=== PATIENT | male | born 1955 | race Caucasian/White ===

== ENCOUNTER 2018-11-11 05:22 | Emergency (ER) | payer SELFPAY ==
[~2018-11-11] VITALS: Ht 182.9 cm; Wt 87.5 kg
[2018-11-11] MEDS ORDERED: ALBUTEROL/IPRATROPIUM 2.5MG/0.5MG, 3 ML NPPB ONE (06:00)
[2018-11-11] MEDS ORDERED: ACETAMINOPHEN 500 MG TABLET PO ONE (06:00)
[2018-11-11] MEDS ORDERED: ALBUTEROL/IPRATROPIUM 2.5MG/0.5MG, 3 ML ONE (06:07)
--- NOTE | 2018-11-11 06:07 | NUR ---
PT BACK FROM XRAY
[2018-11-11 06:22] LABS: BASOPHILS # (AUTO) 0.03 x10^3/uL (0-0.1); BASOPHILS % (AUTO) 0 % (0-1); EOSINOPHILS # (AUTO) 0.28 x10^3/uL (0-0.4); EOSINOPHILS % (AUTO) 3 % (1-7); LYMPHOCYTES # (AUTO) 0.95 x10^3/uL (1-3.4); LYMPHOCYTES % (AUTO) 11 % (22-44); MD NO; MEAN CORPUSCULAR HEMOGLOBIN 31.7 pg (27.5-34.5); MEAN CORPUSCULAR HGB CONC 34.4 g/dL (33.2-36.2); MEAN CORPUSCULAR VOLUME 91.9 fL (81-97); MEAN PLATELET VOLUME 7.3 fL (7.4-10.4); MONOCYTES # (AUTO) 0.61 x10^3/uL (0.2-0.8); MONOCYTES % (AUTO) 7 % (2-9); NEUTROPHILS # (AUTO) 7.12 x10^3/uL (1.8-6.8); NEUTROPHILS % (AUTO) 79 % (42-75); PLATELET COUNT 314 x10^3/uL (130-400); RED BLOOD COUNT 4.39 x10^6/uL (4.38-5.82); RED CELL DISTRIBUTION WIDTH 13.9 % (9.4-14.8)
[2018-11-11 06:29] LABS: RAPID INFLUENZA A Negative (Negative); RAPID INFLUENZA B Negative (Negative)
[2018-11-11 06:33] LABS: ALBUMIN 3.5 g/dL (3.4-5.0); ANION GAP 6 mmol/L (5-15); CALCIUM 9.9 mg/dL (8.5-10.1); CHLORIDE 108 mmol/L (98-107)
--- NOTE | 2018-11-11 06:48 | NUR ---
PT RESTING ON GURNEY QUIETLY WITH HIS EYES CLOSED. AROUSES TO VERBAL STIMULI. DENIES ANY NEEDS AT THIS TIME. VITALS STABLE. AWAITING CXR READ AT THIS TIME, WILL CONTINUE TO MONITOR.
[2018-11-11 06:50] LABS: CREATININE 1.14 mg/dL (0.7-1.3); TROPONIN I < 0.015 ng/mL (0.000-0.045)
--- NOTE | 2018-11-11 06:56 | NUR ---
BEDSIDE REPORT TO ALEXANDER MONTEIRO
--- NOTE | 2018-11-11 06:59 | NUR ---
RECEIVED REPORT FROM HUGH MUNOZ.
[2018-11-11] MEDS ORDERED: ACETAMINOPHEN 500 MG TABLET ONE (07:02)
[2018-11-11 07:06] VITALS: BP 142/78
== END 2018-11-11 07:08 | disposition home or self-care (01) ==
LOC: ED 07:05
DX: J00 Acute nasopharyngitis [common cold] (principal); B34.9 Viral infection, unspecified
CPT/HCPCS: 36415; 71046; 80048; 82040; 84484; 85025; 87400; 93005; 94640; 99284; J7620

== ENCOUNTER 2019-06-04 13:00 | Emergency (ER) | payer OTHER ==
[~2019-06-04] VITALS: Ht 182.9 cm; Wt 83.2 kg
--- NOTE | 2019-06-04 13:39 | NUR ---
LAB AT BEDSIDE FOR COLLECTION.
[2019-06-04 13:50] VITALS: BP 124/82
--- NOTE | 2019-06-04 13:50 | NUR ---
THIS IS A 63YO MALE THAT COMES IN FOR PAINFUL URINIATION AND DISCHARGE FROM HIS PENIS. PT DENIES SEXUAL CONTACT OR RECENT TRAUMA. PT EDUCATED ON NEED FOR URINE SAMPLE. PT STATES UNABLE TO PEE YET BUT HE WILL IN A FEW MINS. PT CONNECTED TO MONITORING VSS. NADN. CALL LIGHT WITHIN REACH.
[2019-06-04 13:54] LABS: BASOPHILS # (AUTO) 0.02 x10^3/uL (0-0.1); BASOPHILS % (AUTO) 0 % (0-1); EOSINOPHILS # (AUTO) 0.14 x10^3/uL (0-0.4); EOSINOPHILS % (AUTO) 2 % (1-7); LYMPHOCYTES # (AUTO) 0.57 x10^3/uL (1-3.4); LYMPHOCYTES % (AUTO) 8 % (22-44); MD NO; MEAN CORPUSCULAR HEMOGLOBIN 31.6 pg (27.5-34.5); MEAN CORPUSCULAR HGB CONC 33.9 g/dL (33.2-36.2); MEAN CORPUSCULAR VOLUME 93.1 fL (81-97); MEAN PLATELET VOLUME 7.1 fL (7.4-10.4); MONOCYTES % (AUTO) 8 % (2-9); NEUTROPHILS # (AUTO) 5.85 x10^3/uL (1.8-6.8); NEUTROPHILS % (AUTO) 82 % (42-75); PLATELET COUNT 244 x10^3/uL (130-400); RED BLOOD COUNT 4.63 x10^6/uL (4.38-5.82); RED CELL DISTRIBUTION WIDTH 14.1 % (9.4-14.8)
[2019-06-04 14:00] LABS: ALBUMIN 3.4 g/dL (3.4-5.0); ANION GAP 6 mmol/L (5-15); CHLORIDE 106 mmol/L (98-107); CREATININE 1.06 mg/dL (0.7-1.3)
--- NOTE | 2019-06-04 14:01 | NUR ---
PT UP TO RESTROOM FOR URINE SAMPLE. PT EDUCATED ON CLEAN CATCH.
--- NOTE | 2019-06-04 14:06 | NUR ---
URINE SENT TO LAB
[2019-06-04 14:19] LABS: CULTURE INDICATED? YES; MICROSCOPIC INDICATED
--- NOTE | 2019-06-04 15:55 | NUR ---
ALL RESULTS BACK AT THIS TIME, CHART UP FOR RECHECK. NEW ORDERS RECEIVED FOR ABX
[2019-06-04] MEDS ORDERED: CEFTRIAXONE 1,000 MG IM ONE (16:00)
[2019-06-04] MEDS ORDERED: CEFTRIAXONE 1,000 MG ONE (16:03)
[2019-06-04] MEDS ORDERED: LIDOCAINE-MPF 1%, 2ML ONE (16:03)
--- NOTE | 2019-06-04 16:08 | NUR ---
UPON ATTEMPTING TO MEDICATE PT WITH ABX AND GIVE DC PAPERS, PT NO LONGER IN ROOM. UNIT CHECKED BUT APPEARS PT ELOPED PRIOR TO RECEIVING TEST RESULTS, ABX OR DC PAPERS.
== END 2019-06-04 16:12 | disposition left against medical advice (07) ==
LOC: ED 16:06
DX: N34.1 Nonspecific urethritis (principal); N30.01 Acute cystitis with hematuria
CPT/HCPCS: 36415; 80048; 81001; 82040; 85025; 87077; 87086; 87491; 87591; 99283

== ENCOUNTER 2019-06-08 17:05 | Emergency (ER) | payer SELFPAY ==
[~2019-06-08] VITALS: Ht 182.9 cm; Wt 83.0 kg
[2019-06-08 17:09] VITALS: BP 128/74
--- NOTE | 2019-06-08 17:39 | NUR ---
MED STUDENT AT BEDSIDE FOR ASSESSMENT
[2019-06-08] MEDS ORDERED: LIDOCAINE-MPF 1%, 5ML ONE (17:45)
[2019-06-08] MEDS ORDERED: CEFTRIAXONE 250 MG ONE (17:45)
[2019-06-08] MEDS ORDERED: CEFTRIAXONE 250 MG IM ONE (18:00)
== END 2019-06-08 18:31 | disposition home or self-care (01) ==
LOC: ED 18:20
DX: A54.01 Gonococcal cystitis and urethritis, unspecified (principal)
CPT/HCPCS: 96372; 99283; J0696

== ENCOUNTER 2019-08-31 22:00 | Inpatient (IN) | payer MEDICARE ==
[~2019-08-31] VITALS: Ht 182.9 cm; Wt 83.8 kg
[2019-08-31] MEDS ORDERED: HYDROmorphone 1 MG/ML, 1ML INJ IM STA (22:30)
[2019-08-31 22:58] LABS: BASOPHILS # (AUTO) 0.02 x10^3/uL (0-0.1); BASOPHILS % (AUTO) 0 % (0-1); EOSINOPHILS # (AUTO) 0.21 x10^3/uL (0-0.4); EOSINOPHILS % (AUTO) 2 % (1-7); HCT (SEDRATE) 30.3 % (39.2-51.8); LYMPHOCYTES # (AUTO) 0.87 x10^3/uL (1-3.4); LYMPHOCYTES % (AUTO) 10 % (22-44); MD NO; MEAN CORPUSCULAR HEMOGLOBIN 32.6 pg (27.5-34.5); MEAN CORPUSCULAR HGB CONC 34.8 g/dL (33.2-36.2); MEAN CORPUSCULAR VOLUME 93.7 fL (81-97); MEAN PLATELET VOLUME 7.6 fL (7.4-10.4); MONOCYTES # (AUTO) 0.77 x10^3/uL (0.2-0.8); MONOCYTES % (AUTO) 9 % (2-9); NEUTROPHILS # (AUTO) 6.86 x10^3/uL (1.8-6.8); NEUTROPHILS % (AUTO) 79 % (42-75); PLATELET COUNT 203 x10^3/uL (130-400); RED BLOOD COUNT 3.24 x10^6/uL (4.38-5.82); RED CELL DISTRIBUTION WIDTH 13.7 % (9.4-14.8)
[2019-08-31] MEDS ORDERED: SODIUM CHLORIDE FLUSH 10ML SYR IVF ONE (23:00)
[2019-08-31] MEDS ORDERED: ONDANSETRON 2MG/ML, 2ML IVPush ONE (23:00)
[2019-08-31] MEDS ORDERED: HYDROmorphone 1 MG/ML, 1ML INJ IVPush PRN (23:00)
[2019-08-31 23:10] LABS: ALANINE AMINOTRANSFERASE 41 U/L (12-78); ALBUMIN 3.1 g/dL (3.4-5.0); ANION GAP 6 mmol/L (5-15); CHLORIDE 106 mmol/L (98-107)
[2019-08-31 23:18] LABS: ALKALINE PHOSPHATASE 60 U/L (45-117); BILIRUBIN,TOTAL 0.5 mg/dL (0.2-1.0); TOTAL PROTEIN 6.8 g/dL (6.4-8.2)
[2019-08-31] MEDS ORDERED: HYDROmorphone 1 MG/ML, 1ML INJ ONE (23:27)
[2019-08-31] MEDS ORDERED: ONDANSETRON 2MG/ML, 2ML ONE (23:36)
[2019-09-01] MEDS ORDERED: AMPICILLIN/SULBACTAM 1,500 MG in SODIUM CHLORIDE 0.9% 50 ML IV SCH
[2019-09-01] MEDS ORDERED: VANCOMYCIN 1,700 MG in SODIUM CHLORIDE 0.9% 250 ML IV ONE (00:30)
--- NOTE | 2019-09-01 00:57 | NUR ---
ABX IV GIVEN PER MD ORDER VSS UPDATED PT IS AWARE PT WILL BE ADMITTED
[2019-09-01 01:30] VITALS: BP 133/77
[2019-09-01] MEDS ORDERED: SODIUM CHLORIDE 0.9% 1,000 ML IV SCH (03:54)
[2019-09-01] MEDS ORDERED: PHARMACOKINETIC MONITORING MC PRN (05:00)
[2019-09-01] MEDS ORDERED: MORPHINE SULFATE 4 MG/ML, 1ML IVPush PRN (05:00)
[2019-09-01] MEDS ORDERED: ONDANSETRON 2MG/ML, 2ML IVPush PRN (05:00)
[2019-09-01] MEDS ORDERED: PHARMACOKINETIC CONSULTATION MC ONE (05:00)
[2019-09-01] MEDS ORDERED: VANCOMYCIN PER PHARMACY MC PRN ×2 (05:00)
[2019-09-01] MEDS: AMPICILLIN/SULBACTAM 1,500 MG in SODIUM CHLORIDE 0.9% 50 ML IV SCH ×2 (06:01→12:30)
[2019-09-01 07:59] VITALS: BP 106/63
[2019-09-01] MEDS ORDERED: MELO15TA24 PO (12:25)
[2019-09-01 12:58] VITALS: BP 136/75
[2019-09-01] MEDS ORDERED: VANCOMYCIN 1,600 MG in SODIUM CHLORIDE 0.9% 250 ML IV SCH (19:00)
== END 2019-09-01 13:55 | disposition home or self-care (01) | DRG 605 ==
LOC: ED 22:51 → EDIP 09-01 00:07 → 4NE 09-01 01:30 → DCLOUNGE 09-01 13:40
PROVIDERS: ADMIT Family Medicine; ATTEND Family Medicine
DX: S70.12XA Contusion of left thigh, initial encounter (principal); F17.200 Nicotine dependence, unspecified, uncomplicated; K40.90 Unilateral inguinal hernia, without obstruction or gangrene, not specified as recurrent; S70.02XA Contusion of left hip, initial encounter; W18.39XA Other fall on same level, initial encounter; Y93.89 Activity, other specified; Y92.89 Other specified places as the place of occurrence of the external cause; Y99.8 Other external cause status
CPT/HCPCS: 36415; 72192; 80053; 85025; 85651; 86140; 87040; 96365; 96368; 96375; J1170; J2405; J3370; J0295; J7030; J7050

== ENCOUNTER 2019-09-02 21:39 | Emergency (ER) | payer MEDICARE ==
[~2019-09-02] VITALS: Ht 182.9 cm; Wt 89.4 kg
[~2019-09-02 21:39] MED LIST: MELO15TA24 PO
[2019-09-02 23:13] LABS: HCT (SEDRATE) 31.5 % (39.2-51.8)
[2019-09-02 23:24] LABS: ALANINE AMINOTRANSFERASE 39 U/L (12-78); ALBUMIN 3.3 g/dL (3.4-5.0); ANION GAP 4 mmol/L (5-15); BASOPHILS # (AUTO) 0.02 x10^3/uL (0-0.1); BASOPHILS % (AUTO) 0 % (0-1); CALCIUM 10.3 mg/dL (8.5-10.1); CHLORIDE 107 mmol/L (98-107); CREATININE 1.23 mg/dL (0.7-1.3); EOSINOPHILS # (AUTO) 0.27 x10^3/uL (0-0.4); EOSINOPHILS % (AUTO) 4 % (1-7); LYMPHOCYTES # (AUTO) 0.92 x10^3/uL (1-3.4); LYMPHOCYTES % (AUTO) 13 % (22-44); MD NO; MEAN CORPUSCULAR HEMOGLOBIN 32.3 pg (27.5-34.5); MEAN CORPUSCULAR HGB CONC 33.9 g/dL (33.2-36.2); MEAN CORPUSCULAR VOLUME 95.2 fL (81-97); MEAN PLATELET VOLUME 7.4 fL (7.4-10.4); MONOCYTES # (AUTO) 0.61 x10^3/uL (0.2-0.8); MONOCYTES % (AUTO) 8 % (2-9); NEUTROPHILS # (AUTO) 5.51 x10^3/uL (1.8-6.8); NEUTROPHILS % (AUTO) 75 % (42-75); PLATELET COUNT 260 x10^3/uL (130-400); RED BLOOD COUNT 3.24 x10^6/uL (4.38-5.82); RED CELL DISTRIBUTION WIDTH 13.8 % (9.4-14.8)
[2019-09-02 23:30] LABS: ALKALINE PHOSPHATASE 74 U/L (45-117); BILIRUBIN,TOTAL 0.7 mg/dL (0.2-1.0); TOTAL PROTEIN 7.5 g/dL (6.4-8.2)
[2019-09-02] MEDS ORDERED: SODIUM CHLORIDE 0.9% 1,000ML IVBOLUS ONE (23:30)
[2019-09-02] MEDS ORDERED: HYDROmorphone 2 MG/ML, 1ML IVPush PRN (23:30)
[2019-09-02] MEDS ORDERED: SODIUM CHLORIDE FLUSH 10ML SYR IVF ONE (23:30)
[2019-09-02] MEDS ORDERED: ONDANSETRON 2MG/ML, 2ML IVPush ONE (23:30)
[2019-09-02] MEDS ORDERED: ONDANSETRON 2MG/ML, 2ML ONE (23:37)
[2019-09-02] MEDS ORDERED: HYDROmorphone 1 MG/ML, 1ML INJ ONE (23:37)
--- NOTE | 2019-09-02 23:56 | NUR ---
PT MEDICATED PER OCT. PT RESTING COMFORTABLY. MONITOR IN PLACE. BEAR HUGGER FOR COMFORT.
[2019-09-03] MEDS ORDERED: OMNIPAQUE 350 MG/ML, 150 ML BOTTLE ONE (01:12)
--- NOTE | 2019-09-03 01:42 | NUR ---
PT RESTING COMFORTABLY. MONITOR IN PLACE. PT UPDATED ON POC. NO OTHER NEEDS AT THIS TIME.
[2019-09-03 02:49] VITALS: BP 136/66
== END 2019-09-03 02:54 | disposition home or self-care (01) ==
LOC: ED 09-03 02:06
DX: S70.02XA Contusion of left hip, initial encounter (principal); W00.0XXA Fall on same level due to ice and snow, initial encounter; Y93.29 Activity, other involving ice and snow; Y92.89 Other specified places as the place of occurrence of the external cause; Y99.8 Other external cause status
CPT/HCPCS: 36415; 73706; 80053; 83605; 84145; 85025; 85651; 86140; 87040; 96361; 96374; 96375; 99284; J1170; J2405; J7030; Q9967

== ENCOUNTER 2019-12-20 10:06 | Emergency (ER) | payer MEDICARE ==
[~2019-12-20] VITALS: Ht 182.9 cm; Wt 90.3 kg
[2019-12-20] MEDS ORDERED: OXYcodone/APAP 5/325MG TABLET PO ONE (10:30)
[2019-12-20] MEDS ORDERED: DIAZEPAM 5 MG TABLET PO ONE (10:30)
[2019-12-20] MEDS ORDERED: DIAZEPAM 5 MG TABLET ONE (10:47)
[2019-12-20] MEDS ORDERED: OXYcodone/APAP 5/325MG TABLET ONE (10:47)
--- NOTE | 2019-12-20 10:54 | NUR ---
woke up a few days ago with stifness in left neck. now experiencing proggressive pain down to the left shoulder.
--- NOTE | 2019-12-20 11:51 | NUR ---
REPORTST ELIZABETH N 10/21 MUCH BETTER AFTER MEDS
--- NOTE | 2019-12-20 12:33 | NUR ---
TASK RN: CARE FOR DC ONLY PROVIDED. PT LAYING ON GURNEY. RUBS NECK AT TIMES. "PAIN IMPROVED" NO IV TO DC. REVIEWED DC INSTRUCTIONS WITH PT, UNDERSTANDING VERBALIZED. PT LEFT AMB, GAIT STEADY.
[2019-12-20 12:34] VITALS: BP 116/66
== END 2019-12-20 12:36 | disposition home or self-care (01) ==
LOC: ED 11:13
DX: M54.12 Radiculopathy, cervical region (principal); M89.38 Hypertrophy of bone, other site; F17.210 Nicotine dependence, cigarettes, uncomplicated
CPT/HCPCS: 72125; 99284

== ENCOUNTER 2020-04-11 13:38 | Emergency (ER) | payer MEDICARE ==
--- NOTE | 2020-04-11 13:50 | NUR ---
NAABEL RN: CALLED PT NO ANSWER
--- NOTE | 2020-04-11 14:00 | NUR ---
OCCUPATIONAL MEDICINE PHYSICIAN: CALLED PT NO ANSWER
--- NOTE | 2020-04-11 14:09 | NUR ---
CEREAL POPPER: CALLED PT NO ANSWER
== END 2020-04-11 14:10 ==
LOC: ED 14:04
DX: S16.1XXA Strain of muscle, fascia and tendon at neck level, initial encounter (principal); S29.012A Strain of muscle and tendon of back wall of thorax, initial encounter; J15.9 Unspecified bacterial pneumonia; K04.7 Periapical abscess without sinus; R05 Cough; R50.9 Fever, unspecified; Z87.891 Personal history of nicotine dependence; R51 Headache; X58.XXXA Exposure to other specified factors, initial encounter; Y93.89 Activity, other specified; Y92.89 Other specified places as the place of occurrence of the external cause; Y99.8 Other external cause status
CPT/HCPCS: 99283

== ENCOUNTER 2020-04-11 20:56 | Emergency (ER) | payer MEDICARE ==
[~2020-04-11] VITALS: Ht 182.9 cm; Wt 84.9 kg
--- NOTE | 2020-04-11 22:11 | NUR ---
PARAMEDIC: NO ANSWER X1 FROM LOBBY AT THIS TIME TO ROOM PT
--- NOTE | 2020-04-11 22:34 | NUR ---
FARMWORKER FRUIT: PT [facility]ULAT[facility]
--- NOTE | 2020-04-11 22:56 | NUR ---
PT RECLINED IN BED, RESPIRATIONS EVEN AND UNLABORED ON RA. 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 OUT OF MEDICATIONS PT HAS HISTORICALLY USED FOR THIS SYNDROME.
[2020-04-12] MEDS ORDERED: ACETAMINOPHEN 325 MG TABLET PO ONE
[2020-04-12] MEDS ORDERED: SODIUM CHLORIDE FLUSH 10ML SYR IVF ONE
[2020-04-12] MEDS ORDERED: MORPHINE SULFATE 4 MG/ML, 1ML IVPush PRN
[2020-04-12] MEDS ORDERED: MORPHINE SULFATE 4 MG/ML, 1ML ONE (00:11)
[2020-04-12] MEDS ORDERED: ACETAMINOPHEN 325 MG TABLET ONE (00:12)
[2020-04-12 00:30] LABS: BASOPHILS % (AUTO) 0 % (0-1); EOSINOPHILS # (AUTO) 0.01 x10^3/uL (0-0.4); EOSINOPHILS % (AUTO) 0 % (1-7); LYMPHOCYTES # (AUTO) 0.39 x10^3/uL (1-3.4); LYMPHOCYTES % (AUTO) 7 % (22-44); MD NO; MEAN CORPUSCULAR HGB CONC 34.8 g/dL (33.2-36.2); MEAN CORPUSCULAR VOLUME 94.9 fL (81-97); MEAN PLATELET VOLUME 7.7 fL (7.4-10.4); MONOCYTES # (AUTO) 0.37 x10^3/uL (0.2-0.8); MONOCYTES % (AUTO) 6 % (2-9); NEUTROPHILS % (AUTO) 87 % (42-75); PLATELET COUNT 195 x10^3/uL (130-400); RED BLOOD COUNT 4.67 x10^6/uL (4.38-5.82); RED CELL DISTRIBUTION WIDTH 13.3 % (9.4-14.8)
--- NOTE | 2020-04-12 00:37 | NUR ---
PT MEDICATED PER EMAR, LABS DRAWN AND SENT. MONITORING IN PLACE. NAD NOTED AT THIS TIME. PT DENIES PAIN FOLLOWING PAIN MED ADMINISTRATION. SIDE RAILS UP, CALL LIGHT IN REACH.
[2020-04-12 00:39] LABS: ALANINE AMINOTRANSFERASE 72 U/L (12-78); ALBUMIN 3.9 g/dL (3.4-5.0); ANION GAP 6 mmol/L (5-15); CALCIUM 10.5 mg/dL (8.5-10.1); CHLORIDE 101 mmol/L (98-107)
[2020-04-12 00:44] LABS: ALKALINE PHOSPHATASE 71 U/L (45-117); BILIRUBIN,TOTAL 0.8 mg/dL (0.2-1.0); CREATININE 1.51 mg/dL (0.7-1.3); TOTAL PROTEIN 8.5 g/dL (6.4-8.2); TROPONIN I < 0.015 ng/mL (0.000-0.045)
--- NOTE | 2020-04-12 00:45 | NUR ---
PT REMINDED OF NEED FOR UA, DENIES ABILITY TO GO AT THIS TIME. ENCOURAGED TO USE URINAL AT BEDSIDE. AWAITING SPECIMEN.
--- NOTE | 2020-04-12 00:56 | NUR ---
REPORT TO ALEXANDER RODRIGUEZ. PT RESTING COMFORTABLY IN BED. NAD NOTED AT THIS TIME.
[2020-04-12 02:16] VITALS: BP 103/57
== END 2020-04-12 02:19 | disposition home or self-care (01) ==
LOC: ED 23:00
DX: M54.2 Cervicalgia (principal); R94.31 Abnormal electrocardiogram [ECG] [EKG]
CPT/HCPCS: 36415; 71046; 80053; 83605; 84145; 84484; 85025; 87040; 93005; 96374; 99285; J2270; 96372

== ENCOUNTER 2020-04-14 12:02 | Emergency (ER) | payer MEDICARE ==
[~2020-04-14] VITALS: Ht 182.9 cm; Wt 83.5 kg
--- NOTE | 2020-04-14 12:32 | NUR ---
PT AMBULATORY TO ROOM 37 W/ C/O FEELING WEAK, DIZZY, LIGHTHEADED, SOB/COUGH, NAUSEA NO EMESIS AND DIARRHEA THAT STARTED YESTERDAY. PT STATES HE HAS NOT BEEN TESTED FOR COVID-19. PT WAS SEEN HERE 2 DAYS AGO AND PROVIDED W/ ABX RX AND STATES HE HAS NOT FILLED IT PT DOES NOT HAVE MONEY TO PAY FOR IT. PT STATES "I NEED TO BE ADMITTED". PT EDUCATED ON PROCESS FOR DECISION MAKING ON ADMIT/DC. PT VERBALIZES UNDERSTANDING. PT RESTING ON GURNEY. NADN. MONITORS APPLIED.WARM BLANKET PROVIDED.
[2020-04-14] MEDS ORDERED: DIAZEPAM 5 MG TABLET ONE (12:49)
[2020-04-14 13:00] LABS: BASOPHILS % (AUTO) 0 % (0-1); EOSINOPHILS % (AUTO) 0 % (1-7); LYMPHOCYTES # (AUTO) 0.57 x10^3/uL (1-3.4); LYMPHOCYTES % (AUTO) 11 % (22-44); MD NO; MEAN CORPUSCULAR HEMOGLOBIN 32.4 pg (27.5-34.5); MEAN CORPUSCULAR HGB CONC 33.9 g/dL (33.2-36.2); MEAN CORPUSCULAR VOLUME 95.4 fL (81-97); MEAN PLATELET VOLUME 7.9 fL (7.4-10.4); MONOCYTES # (AUTO) 0.31 x10^3/uL (0.2-0.8); MONOCYTES % (AUTO) 6 % (2-9); NEUTROPHILS # (AUTO) 4.56 x10^3/uL (1.8-6.8); NEUTROPHILS % (AUTO) 84 % (42-75); PLATELET COUNT 175 x10^3/uL (130-400); RED BLOOD COUNT 4.74 x10^6/uL (4.38-5.82); RED CELL DISTRIBUTION WIDTH 13.1 % (9.4-14.8)
[2020-04-14] MEDS ORDERED: DIAZEPAM 5 MG TABLET PO ONE (13:00)
--- NOTE | 2020-04-14 13:04 | NUR ---
TASK RN: PT MEDICATED PER MAR
[2020-04-14 13:09] LABS: ALBUMIN 3.3 g/dL (3.4-5.0); ANION GAP 6 mmol/L (5-15); CALCIUM 9.5 mg/dL (8.5-10.1); CHLORIDE 99 mmol/L (98-107); CREATININE 1.26 mg/dL (0.7-1.3)
--- NOTE | 2020-04-14 13:26 | NUR ---
PT RESTING ON GURNEY. NADN. BETTS.
[2020-04-14] MEDS ORDERED: KETOROLAC 30 MG/1 ML IM ONE (13:30)
[2020-04-14] MEDS ORDERED: KETOROLAC 30 MG/1 ML ONE (13:55)
--- NOTE | 2020-04-14 14:17 | NUR ---
PT RESTING ON GURNEY. NADN. BETTS.
[2020-04-14] MEDS ORDERED: AZITHROMYCIN 500 MG TABLET PO ONE (14:29)
[2020-04-14] MEDS ORDERED: CEFDINIR 300 MG CAPSULE PO ONE (14:30)
[2020-04-14] MEDS ORDERED: OMNIPAQUE 350 MG/ML, 75ML BOTTLE ONE (15:13)
[2020-04-14] MEDS ORDERED: CEFDINIR 300 MG CAPSULE ONE (15:43)
[2020-04-14] MEDS ORDERED: AZITHROMYCIN 250 MG TABLET ONE (15:43)
--- NOTE | 2020-04-14 15:46 | NUR ---
SPOKE W IMTIAZ MORALES WHO STATES NO NEED FOR COVID TEST. PT RESTING ON GURNEY. TYLORN. VSS.
--- NOTE | 2020-04-14 15:47 | NUR ---
PT CHART REVIEWED AND PLACED FOR RECHECK.
--- NOTE | 2020-04-14 16:20 | NUR ---
SPOKE W/ ERP DR. FUENTES IN REGARDS TO COVID TEST FOR PT. PER ERP WILL ASSESS PT'S CHART.
[2020-04-14 16:31] VITALS: BP 125/69
--- NOTE | 2020-04-14 16:31 | NUR ---
PT RESTING ON GURNEY. NADN. BETTS.
== END 2020-04-14 16:51 | disposition home or self-care (01) ==
LOC: ED 12:57
DX: U07.1 COVID-19 (principal); J15.9 Unspecified bacterial pneumonia; M25.512 Pain in left shoulder; M54.2 Cervicalgia; Z87.891 Personal history of nicotine dependence; D35.00 Benign neoplasm of unspecified adrenal gland; M62.830 Muscle spasm of back; R94.31 Abnormal electrocardiogram [ECG] [EKG]
CPT/HCPCS: 36415; 71045; 71275; 80048; 82040; 85025; 85379; 87635; 93005; 96372; 99285; J1885; Q9967

== ENCOUNTER 2020-05-21 01:26 | Emergency (ER) | payer MEDICARE ==
[~2020-05-21] VITALS: Ht 182.9 cm; Wt 84.0 kg
[~2020-05-21 01:26] MED LIST changes: +ACET325T26 PO; +RISP2TAB35 PO
[2020-05-21 01:28] VITALS: BP 155/92
== END 2020-05-21 01:59 | disposition left against medical advice (07) ==
LOC: ED 01:40
DX: R11.2 Nausea with vomiting, unspecified (principal); R19.7 Diarrhea, unspecified; M79.10 Myalgia, unspecified site; Z53.21 Procedure and treatment not carried out due to patient leaving prior to being seen by health care provider

== ENCOUNTER 2020-09-22 10:44 | Emergency (ER) | payer MEDICARE, OTHER ==
[~2020-09-22] VITALS: Ht 182.9 cm; Wt 81.6 kg
[2020-09-22 10:46] VITALS: BP 150/99
== END 2020-09-22 11:26 | disposition home or self-care (01) ==
LOC: ED 11:12
DX: J45.909 Unspecified asthma, uncomplicated (principal); Z76.0 Encounter for issue of repeat prescription; Z87.891 Personal history of nicotine dependence
CPT/HCPCS: 99281; 99284